=== PATIENT | female | born 1985 | race Caucasian/White ===

== ENCOUNTER 2016-07-16 15:33 | Emergency (ER) | payer OTHER ==
[2016-07-16 15:48] VITALS: RESP 18
[2016-07-16] MEDS ORDERED: SODIUM CHLORIDE 0.9% 500 ML IV STA (16:00)
[2016-07-16 16:30] LABS: Basophils % (A) 1 %; CH 32.2; Eosinophils # (A) 0.2 k/uL (0-0.7); Eosinophils % (A) 3 %; HCT 43.9 % (34.0-46.0); HDW 2.74; HGB 14.3 gm/dL (11.4-16.0); Luc # (Auto) 0.14; Luc % (Auto) 2; Lymphocytes # (A) 2.1 k/uL (1.0-4.8); Lymphocytes % (A) 32 %; MCH 30.8 pg (25.0-35.0); MCHC 32.4 g/dL (31.0-37.0); MCV 95.1 fL (80.0-100.0); Mean Platelet Volume 7.6; Monocytes # (A) 0.2 k/uL (0-1.0); Monocytes % (A) 4 %; Neutrophils # (A) 3.8 k/uL (1.3-7.7); Neutrophils % (A) 59 %; RBC 4.62 m/uL (3.80-5.40); RDW 12.8 % (11.5-15.5); WBC 6.5 k/uL (3.8-10.6)
[2016-07-16 16:40] LABS: Appearance,Urine Clear (Clear); Bilirubin,Urine Negative (Negative); Glucose,Urine (UA) 4+ (Negative); Ketones,Urine Negative (Negative); Leukocyte Esterase,Urine Negative (Negative); Nitrite,Urine Negative (Negative); Particle Count 1061; Protein,Urine Negative (Negative); RBC,Urine 1 /hpf (0-5); Specific Gravity,Urine 1.019 (1.001-1.035); Squamous Epithelial Cell,Urine 2 /hpf (0-4); UA Billing (MACRO vs. MICRO) MICRO; Urobilinogen,Urine <2.0 mg/dL (<2.0); WBC,Urine 4 /hpf (0-5)
--- NOTE | 2016-07-16 17:32 | CT ---
EXAMINATION TYPE: CT abdomen pelvis wo con DATE OF EXAM: 07/16/2016 5:00 PM COMPARISON: NONE INDICATION: Generalized pain with nausea DLP: 3378.8 mGycm, Automated exposure control for dose reduction was used. CONTRAST: None Study performed without Oral Contrast TECHNIQUE: Axial images were obtained from above the diaphragm to the pubic rami in the axial plane a t 5 mm thick sections. Reconstructed images are reviewed on the computer in the coronal plane. FINDINGS: Limited CT sections are obtained the lung bases. The lung bases are clear. CT ABDOMEN: Liver: Normal Spleen: Normal Pancreas: Normal Adrenal glands: The adrenal glands are normal. Gallbladder: Gallbladder surgically absent Kidneys: No masses are evident. No hydronephrosis is present. No cysts are present. No renal stone s are identified. Aorta: Vascular calcification is within the aorta. Inferior vena cava: Normal. CT PELVIS: Loops of bowel without oral contrast. Unremarkable. No dilated loops of bowel are evident. No suspici ous diverticulitis is evident. Appendix: Not identified. No suspicious tubular structure inflammatory changes are evident. Urinary bladder: Normal. Genitourinary structures: Uterus and ovaries are unremarkable. Osseous structures: No suspicious lytic or sclerotic lesions. Scoliosis of the lumbar spine is presen t. IMPRESSIONS: 1. No suspicious acute changes.
[2016-07-16 17:54] LABS: ALT 133 U/L (9-52); AST 95 U/L (14-36); Alkaline Phosphatase 88 U/L (38-126); Amylase 40 U/L (30-110); Anion Gap 11 mmol/L; Blood Urea Nitrogen 13 mg/dL (7-17); Calcium 9.2 mg/dL (8.4-10.2); Carbon Dioxide 28 mmol/L (22-30); Chloride 101 mmol/L (98-107); Glucose 299 mg/dL (74-99); Non-African American GFR(MDRD) >60 (>60 ml/min/1.73 sqM); Potassium 4.5 mmol/L (3.5-5.1); Sodium 140 mmol/L (137-145); Total Bilirubin 0.5 mg/dL (0.2-1.3); Total Protein 7.3 g/dL (6.3-8.2)
--- NOTE | 2016-07-16 18:33 | ED ---
Abdominal Pain HPI - General Chief Complaint: Abdominal Pain Stated Complaint: Abdominal Pain x 4 days Time Seen by Provider: 07/16/16 15:49 Source: patient Mode of arrival: ambulatory Limitations: no limitations - History of Present Illness Initial Comments: This patient is a 30-year-old woman who presents to be evaluated for low abdominal pain that is been going on for 3-4 days now. She indicates all across the lower abdomen. The pain is a cramping or bloating sensation. The pains constant, though it does very little bit in intensity, going to moderate intensity. The patient denies worsening or relieving factors. MD Complaint: abdominal pain Onset/Timin -: days(s) Location: LUQ, RUQ, suprapubic Radiation: none Migration to: no migration Severity: moderate Quality: cramping, fullness Consistency: constant Improves With: nothing Worsens With: nothing Associated Symptoms: denies other symptoms - Related Data Home Medications Medication Instructions Recorded Confirmed Ibuprofen [Motrin] 200 mg PO Q6HR PRN 07/16/16 07/16/16 Previous Rx's Medication Instructions Recorded Famotidine [Pepcid] 20 mg PO BID #14 tablet 07/16/16 Allergies Allergy/AdvReac Type Severity Reaction Status Date / Time No Known Allergies Allergy Verified 07/16/16 16:11 Review of Systems ROS Statement: Those systems with pertinent positive or pertinent negative responses have been documented in the HPI. ROS Other: All systems not noted in ROS Statement are negative. Constitutional: Denies: fever, chills Respiratory: Denies: cough, dyspnea, wheezes Cardiovascular: Denies: chest pain, palpitations Gastrointestinal: Reports: abdominal pain. Denies: nausea, vomiting, diarrhea, constipation, melena, hematochezia Genitourinary: Denies: dysuria, frequency, hematuria, discharge, abnormal menses Musculoskeletal: Denies: back pain Skin: Denies: rash Neurological: Denies: headache Past Medical History Past Medical History: Diabetes Mellitus Additional Past Medical History / Comment(s): Vit D History of Any Multi-Drug Resistant Organisms: None Reported Past Surgical History: Section, Cholecystectomy Past Psychological History: No Psychological Hx Reported Smoking Status: Former smoker Past Alcohol Use History: None Reported Past Drug Use History: None Reported General Exam Limitations: no limitations General appearance: alert, in no apparent distress Head exam: Present: atraumatic, normocephalic Eye exam: Present: normal appearance. Absent: scleral icterus, conjunctival injection Respiratory exam: Present: normal lung sounds bilaterally. Absent: respiratory distress, wheezes, rales, rhonchi, stridor Cardiovascular Exam: Present: regular rate, normal rhythm, normal heart sounds. Absent: systolic murmur, diastolic murmur, rubs, gallop GI/Abdominal exam: Present: soft, tenderness (There is mild suprapubic tenderness without rebound or guarding), normal bowel sounds. Absent: distended , guarding, rebound, rigid, mass, bruit, pulsatile mass, hernia Extremities exam: Present: normal inspection, normal capillary refill. Absent: pedal edema, calf tenderness Back exam: Present: normal inspection. Absent: CVA tenderness (R), CVA tenderness (L) Skin exam: Present: warm, dry, intact, normal color. Absent: rash Course Vital Signs 07/16/16 07/16/16 15:42 18:43 Temperature 98.5 F 98.8 F Pulse Rate 80 81 Respiratory 18 18 Rate Blood Pressure 140/66 139/90 O2 Sat by Pulse 97 96 Oximetry Medical Decision Making - Lab Data Result diagrams: 07/16/16 16:15 07/16/16 17:34 Lab Results 07/16/16 07/16/16 07/16/16 Range/Units 16:15 16:15 16:15 WBC 6.5 (3.8-10.6) k/uL RBC 4.62 (3.80-5.40) m/uL Hgb 14.3 (11.4-16.0) gm/dL Hct 43.9 (34.0-46.0) % MCV 95.1 (80.0-100.0) fL MCH 30.8 (25.0-35.0) pg MCHC 32.4 (31.0-37.0) g/dL RDW 12.8 (11.5-15.5) % Plt Count 230 (150-450) k/uL Neutrophils % 59 % Lymphocytes % 32 % Monocytes % 4 % Eosinophils % 3 % Basophils % 1 % Neutrophils # 3.8 (1.3-7.7) k/uL Lymphocytes # 2.1 (1.0-4.8) k/uL Monocytes # 0.2 (0-1.0) k/uL Eosinophils # 0.2 (0-0.7) k/uL Basophils # 0.0 (0-0.2) k/uL Sodium (137-145) mmol/L Potassium (3.5-5.1) mmol/L Chloride (98-107) mmol/L Carbon Dioxide (22-30) mmol/L Anion Gap mmol/L BUN (7-17) mg/dL Creatinine (0.52-1.04) mg/dL Est GFR (MDRD) Af Amer (>60 ml/min/1.73 sqM) Est GFR (MDRD) Non-Af (>60 ml/min/1.73 sqM) Glucose (74-99) mg/dL Calcium (8.4-10.2) mg/dL Total Bilirubin (0.2-1.3) mg/dL AST (14-36) U/L ALT (9-52) U/L Alkaline Phosphatase (38-126) U/L Total Protein (6.3-8.2) g/dL Albumin (3.5-5.0) g/dL Amylase (30-110) U/L Lipase (23-300) U/L Urine Color Light Yellow Urine Appearance Clear (Clear) Urine pH 6.0 (5.0-8.0) Ur Specific [place] 1.019 (1.001-1.035) Urine Protein Negative (Negative) Urine Glucose (UA) 4+ H (Negative) Urine Ketones Negative (Negative) Urine Blood Small H (Negative) Urine Nitrate Negative (Negative) Urine Bilirubin Negative (Negative) Urine Urobilinogen <2.0 (<2.0) mg/dL Ur Leukocyte Esterase Negative (Negative) Urine RBC 1 (0-5) /hpf Urine WBC 4 (0-5) /hpf Ur Squamous Epith Cells 2 (0-4) /hpf Urine HCG, Qual Not Detected (Not Detectd) 07/16/16 Range/Units 17:34 WBC (3.8-10.6) k/uL RBC (3.80-5.40) m/uL Hgb (11.4-16.0) gm/dL Hct (34.0-46.0) % MCV (80.0-100.0) fL MCH (25.0-35.0) pg MCHC (31.0-37.0) g/dL RDW (11.5-15.5) % Plt Count (150-450) k/uL Neutrophils % % Lymphocytes % % Monocytes % % Eosinophils % % Basophils % % Neutrophils # (1.3-7.7) k/uL Lymphocytes # (1.0-4.8) k/uL Monocytes # (0-1.0) k/uL Eosinophils # (0-0.7) k/uL Basophils # (0-0.2) k/uL Sodium 140 (137-145) mmol/L Potassium 4.5 (3.5-5.1) mmol/L Chloride 101 (98-107) mmol/L Carbon Dioxide 28 (22-30) mmol/L Anion Gap 11 mmol/L BUN 13 (7-17) mg/dL Creatinine 0.59 (0.52-1.04) mg/dL Est GFR (MDRD) Af Amer >60 (>60 ml/min/1.73 sqM) Est GFR (MDRD) Non-Af >60 (>60 ml/min/1.73 sqM) Glucose 299 H (74-99) mg/dL Calcium 9.2 (8.4-10.2) mg/dL Total Bilirubin 0.5 (0.2-1.3) mg/dL AST 95 H (14-36) U/L ALT 133 H (9-52) U/L Alkaline Phosphatase 88 (38-126) U/L Total Protein 7.3 (6.3-8.2) g/dL Albumin 3.8 (3.5-5.0) g/dL Amylase 40 (30-110) U/L Lipase 79 (23-300) U/L Urine Color Urine Appearance (Clear) Urine pH (5.0-8.0) Ur Specific [place] (1.001-1.035) Urine Protein (Negative) Urine Glucose (UA) (Negative) Urine Ketones (Negative) Urine Blood (Negative) Urine Nitrate (Negative) Urine Bilirubin (Negative) Urine Urobilinogen (<2.0) mg/dL Ur Leukocyte Esterase (Negative) Urine RBC (0-5) /hpf Urine WBC (0-5) /hpf Ur Squamous Epith Cells (0-4) /hpf Urine HCG, Qual (Not Detectd) Disposition Clinical Impression: Abdominal pain Disposition: HOME SELF-CARE Condition: Good Instructions: Abdominal Pain (ED) Prescriptions: Famotidine [Pepcid] 20 mg PO BID #14 tablet Referrals: Edward Rothman MD [Primary Care Provider] - 1-2 days
[2016-07-16 18:43] VITALS: BP 139/90; PULSE 81; TEMP 98.8
== END 2016-07-16 18:43 | disposition home or self-care (01) ==
LOC: EC 15:33
DX: R10.9 Unspecified abdominal pain (principal); Z87.891 Personal history of nicotine dependence; Z90.49 Acquired absence of other specified parts of digestive tract; Z98.890 Other specified postprocedural states
CPT/HCPCS: 36415; 74176; 80053; 81001; 81025; 82150; 83690; 85025; 99284

== ENCOUNTER 2019-01-28 19:02 | Emergency (ER) | payer OTHER ==
[2019-01-28 19:39] VITALS: BP 138/88; PULSE 75; RESP 18; TEMP 98.3
[2019-01-28] MEDS ORDERED: SODIUM CHLORIDE 0.9% 1,000 ML IV STA ×2 (20:23)
--- NOTE | 2019-01-28 20:34 | ED ---
Female Urogenital HPI - General Chief complaint: Vaginal Bleeding Stated complaint: Bleeding Time Seen by Provider: 01/28/19 20:23 Source: patient, family, RN notes reviewed, old records reviewed Mode of arrival: ambulatory Limitations: no limitations - History of Present Illness Initial comments: This is a 33-year-old female the ER for evaluation. Today she presents today for evaluation regards to vaginal bleeding some suprapubic cramping and pain, lower back pain. No trauma. No fevers. She states she has been passing some blood and blood clots unsure if she is on her period never had abnormal periods in the past. She is a denying possibility of currently. Denying any fevers. She was lightheaded and dizzy earlier in the day function may pass out when she got up and move. Currently feeling improved as far as I cause. Does not feel near-syncopal currently no chest pain or shortness of breath, no significant abdominal pain she has had suprapubic cramping again. MD Complaint: vaginal bleeding -: hour(s) Location: suprapubic Radiation: non-radiating Severity: mild Severity scale (1-10): 3 Quality: cramping Consistency: intermittent Improves with: menstrual period Worsens with: none Patient : No Associated Symptoms: vaginal bleeding, weakness - Related Data Home Medications Medication Instructions Recorded Confirmed No Known Home Medications 01/28/19 01/28/19 Allergies Allergy/AdvReac Type Severity Reaction Status Date / Time No Known Allergies Allergy Verified 01/28/19 20:53 Review of Systems ROS Statement: Those systems with pertinent positive or pertinent negative responses have been documented in the HPI. ROS Other: All systems not noted in ROS Statement are negative. Past Medical History Past Medical History: Diabetes Mellitus Additional Past Medical History / Comment(s): Vit D History of Any Multi-Drug Resistant Organisms: None Reported Past Surgical History: Section, Cholecystectomy Past Psychological History: No Psychological Hx Reported Smoking Status: Former smoker Past Alcohol Use History: None Reported Past Drug Use History: None Reported General Exam Limitations: no limitations General appearance: alert, in no apparent distress, obese Head exam: Present: atraumatic, normocephalic, normal inspection Eye exam: Present: normal appearance, PERRL, EOMI. Absent: scleral icterus, conjunctival injection, periorbital swelling ENT exam: Present: normal exam, mucous membranes moist Neck exam: Present: normal inspection. Absent: tenderness, meningismus, lymphadenopathy Respiratory exam: Present: normal lung sounds bilaterally. Absent: respiratory distress, wheezes, rales, rhonchi, stridor Cardiovascular Exam: Present: regular rate, normal rhythm, normal heart sounds. Absent: systolic murmur, diastolic murmur, rubs, gallop, clicks GI/Abdominal exam: Present: soft, normal bowel sounds. Absent: distended, tenderness, guarding, rebound, rigid Extremities exam: Present: normal inspection, full ROM, normal capillary refill. Absent: tenderness, pedal edema, joint swelling, calf tenderness Back exam: Present: normal inspection Neurological exam: Present: alert, oriented X3, CN II-XII intact Psychiatric exam: Present: normal affect, normal mood Skin exam: Present: warm, dry, intact, normal color. Absent: rash Course Vital Signs 01/28/19 19:36 Temperature 98.3 F Pulse Rate 75 Respiratory 18 Rate Blood Pressure 138/88 O2 Sat by Pulse 99 Oximetry - Reevaluation(s) Reevaluation #1: 01/28/19 20:34 Medical records reviewed Reevaluation #2: 01/28/19 21:56 No active bleeding here in the ER Medical Decision Making - Medical Decision Making 33 female with dysfunctional uterine bleeding. Vital signs are normal hemoglobin is normal. Patient can be discharged home - Lab Data Result diagrams: 01/28/19 20:36 01/28/19 20:36 Lab Results 01/28/19 01/28/19 01/28/19 Range/Units 20:36 20:36 20:36 WBC (3.8-10.6) k/uL RBC (3.80-5.40) m/uL Hgb (11.4-16.0) gm/dL Hct (34.0-46.0) % MCV (80.0-100.0) fL MCH (25.0-35.0) pg MCHC (31.0-37.0) g/dL RDW (11.5-15.5) % Plt Count (150-450) k/uL Neutrophils % % Lymphocytes % % Monocytes % % Eosinophils % % Basophils % % Neutrophils # (1.3-7.7) k/uL Lymphocytes # (1.0-4.8) k/uL Monocytes # (0-1.0) k/uL Eosinophils # (0-0.7) k/uL Basophils # (0-0.2) k/uL Sodium (137-145) mmol/L Potassium (3.5-5.1) mmol/L Chloride (98-107) mmol/L Carbon Dioxide (22-30) mmol/L Anion Gap mmol/L BUN (7-17) mg/dL Creatinine (0.52-1.04) mg/dL Est GFR (CKD-EPI)AfAm (>60 ml/min/1.73 sqM) Est GFR (CKD-EPI)NonAf (>60 ml/min/1.73 sqM) Glucose (74-99) mg/dL Calcium (8.4-10.2) mg/dL Phosphorus (2.5-4.5) mg/dL Magnesium (1.6-2.3) mg/dL Total Bilirubin (0.2-1.3) mg/dL AST (14-36) U/L ALT (9-52) U/L Alkaline Phosphatase (38-126) U/L Total Protein (6.3-8.2) g/dL Albumin (3.5-5.0) g/dL Urine Color Yellow Urine Appearance Clear (Clear) Urine pH 5.5 (5.0-8.0) Ur Specific [place] 1.032 (1.001-1.035) Urine Protein Negative (Negative) Urine Glucose (UA) 4+ H (Negative) Urine Ketones Negative (Negative) Urine Blood Large H (Negative) Urine Nitrite Negative (Negative) Urine Bilirubin Negative (Negative) Urine Urobilinogen <2.0 (<2.0) mg/dL Ur Leukocyte Esterase Negative (Negative) Urine RBC >182 H (0-5) /hpf Urine WBC 1 (0-5) /hpf Ur Squamous Epith Cells <1 (0-4) /hpf Urine Mucus Rare H (None) /hpf Urine HCG, Qual Not Detected (Not Detectd) Blood Type O Positive Blood Type Recheck O Pos Bld Type Recheck Status No Antibody Screen NEGATIVE Spec Expiration Date 01/31/2019 - 233501/28/19 01/28/19 Range/Units 20:36 20:36 WBC 7.6 (3.8-10.6) k/uL RBC 4.43 (3.80-5.40) m/uL Hgb 14.0 (11.4-16.0) gm/dL Hct 41.3 (34.0-46.0) % MCV 93.2 (80.0-100.0) fL MCH 31.6 (25.0-35.0) pg MCHC 33.9 (31.0-37.0) g/dL RDW 14.5 (11.5-15.5) % Plt Count 246 (150-450) k/uL Neutrophils % 57 % Lymphocytes % 35 % Monocytes % 4 % Eosinophils % 2 % Basophils % 1 % Neutrophils # 4.3 (1.3-7.7) k/uL Lymphocytes # 2.7 (1.0-4.8) k/uL Monocytes # 0.3 (0-1.0) k/uL Eosinophils # 0.2 (0-0.7) k/uL Basophils # 0.1 (0-0.2) k/uL Sodium 137 (137-145) mmol/L Potassium 4.6 (3.5-5.1) mmol/L Chloride 99 (98-107) mmol/L Carbon Dioxide 30 (22-30) mmol/L Anion Gap 8 mmol/L BUN 8 (7-17) mg/dL Creatinine 0.43 L (0.52-1.04) mg/dL Est GFR (CKD-EPI)AfAm >90 (>60 ml/min/1.73 sqM) Est GFR (CKD-EPI)NonAf >90 (>60 ml/min/1.73 sqM) Glucose 330 H (74-99) mg/dL Calcium 9.4 (8.4-10.2) mg/dL Phosphorus 4.1 (2.5-4.5) mg/dL Magnesium 1.6 (1.6-2.3) mg/dL Total Bilirubin 0.5 (0.2-1.3) mg/dL AST 49 H (14-36) U/L ALT 60 H (9-52) U/L Alkaline Phosphatase 88 (38-126) U/L Total Protein 7.1 (6.3-8.2) g/dL Albumin 3.9 (3.5-5.0) g/dL Urine Color Urine Appearance (Clear) Urine pH (5.0-8.0) Ur Specific [place] (1.001-1.035) Urine Protein (Negative) Urine Glucose (UA) (Negative) Urine Ketones (Negative) Urine Blood (Negative) Urine Nitrite (Negative) Urine Bilirubin (Negative) Urine Urobilinogen (<2.0) mg/dL Ur Leukocyte Esterase (Negative) Urine RBC (0-5) /hpf Urine WBC (0-5) /hpf Ur Squamous Epith Cells (0-4) /hpf Urine Mucus (None) /hpf Urine HCG, Qual (Not Detectd) Blood Type Blood Type Recheck Bld Type Recheck Status Antibody Screen Spec Expiration Date - Radiology Data Radiology results: report reviewed (Ultrasound pelvis negative for acute disease), image reviewed Disposition Clinical Impression: Dysfunctional uterine bleeding Disposition: HOME SELF-CARE Condition: Good Instructions (If sedation given, give patient instructions): Dysfunctional Uterine Bleeding (ED) Is patient prescribed a controlled substance at d/c from ED?: No Referrals: None,Stated [Primary Care Provider] - 1-2 days
[2019-01-28 21:04] LABS: Basophils # (A) 0.1 k/uL (0-0.2); Basophils % (A) 1 %; Eosinophils # (A) 0.2 k/uL (0-0.7); Eosinophils % (A) 2 %; HCT 41.3 % (34.0-46.0); Lymphocytes # (A) 2.7 k/uL (1.0-4.8); Lymphocytes % (A) 35 %; MCH 31.6 pg (25.0-35.0); MCHC 33.9 g/dL (31.0-37.0); MCV 93.2 fL (80.0-100.0); Mean Platelet Volume 7.8; Monocytes # (A) 0.3 k/uL (0-1.0); Monocytes % (A) 4 %; Neutrophils # (A) 4.3 k/uL (1.3-7.7); Neutrophils % (A) 57 %; Platelet Count 246 k/uL (150-450); RBC 4.43 m/uL (3.80-5.40); RDW 14.5 % (11.5-15.5); WBC 7.6 k/uL (3.8-10.6)
[2019-01-28 21:16] LABS: ALT 60 U/L (9-52); AST 49 U/L (14-36); African American GFR (CKD) >90 (>60 ml/min/1.73 sqM); Albumin 3.9 g/dL (3.5-5.0); Alkaline Phosphatase 88 U/L (38-126); Anion Gap 8 mmol/L; Blood Urea Nitrogen 8 mg/dL (7-17); Calcium 9.4 mg/dL (8.4-10.2); Carbon Dioxide 30 mmol/L (22-30); Chloride 99 mmol/L (98-107); Glucose 330 mg/dL (74-99); Magnesium 1.6 mg/dL (1.6-2.3); Phosphorus 4.1 mg/dL (2.5-4.5); Potassium 4.6 mmol/L (3.5-5.1); Sodium 137 mmol/L (137-145); Total Bilirubin 0.5 mg/dL (0.2-1.3); Total Protein 7.1 g/dL (6.3-8.2)
[2019-01-28 21:21] LABS: Appearance,Urine Clear (Clear); Bilirubin,Urine Negative (Negative); Blood,Urine Large (Negative); Color,Urine Yellow; Glucose,Urine (UA) 4+ (Negative); Ketones,Urine Negative (Negative); Leukocyte Esterase,Urine Negative (Negative); Mucus,Urine Rare /hpf; Nitrite,Urine Negative (Negative); PH, Urine 5.5 (5.0-8.0); Protein,Urine Negative (Negative); RBC,Urine >182 /hpf (0-5); Specific Gravity,Urine 1.032 (1.001-1.035); Squamous Epithelial Cell,Urine <1 /hpf (0-4); Urobilinogen,Urine <2.0 mg/dL (<2.0)
--- NOTE | 2019-01-28 21:29 | US ---
EXAMINATION TYPE: US transvaginal DATE OF EXAM: 01/28/2019 COMPARISON: CT CLINICAL HISTORY: pain. Pelvic pain and vaginal bleeding x 4 days. Pt says she is passing clots. Hx C -Section. LMP unknown. . TECHNIQUE: Transvaginal (TV). Date of LMP: Unknown EXAM MEASUREMENTS: Uterus: 9.9 x 5.9 x 4.6 cm Endometrial Stripe: 0.71 cm Right Ovary: not seen Left Ovary: not seen limited study due to large body habitus. 1. Uterus: Anteverted appears wnl 2. Endometrium: appears wnl 3. Right Ovary: not seen 4. Left Ovary: not seen 5. Bilateral Adnexa: appear wnl 6. Posterior cul-de-sac: appears wnl IMPRESSION: Normal uterus and endometrium. No evidence of a gestational sac. No adnexal mass. Ovaries not seen.
== END 2019-01-28 22:25 | disposition home or self-care (01) ==
LOC: EC 19:02
DX: N93.8 Other specified abnormal uterine and vaginal bleeding (principal); R10.30 Lower abdominal pain, unspecified; M54.5 Low back pain; R53.1 Weakness; Z87.891 Personal history of nicotine dependence; Z90.49 Acquired absence of other specified parts of digestive tract
CPT/HCPCS: 36415; 76830; 80053; 81001; 81025; 83735; 84100; 85025; 86850; 86900; 86901; 96360; 96361; 99284

== ENCOUNTER → 2019-06-27 | Outpatient (CLI) | payer OTHER ==
[2019-06-27 15:09] VITALS: BP 143/71; PULSE 103; TEMP 97.2; BMI 58.8
--- NOTE | 2019-06-27 16:36 | P.HPBAR ---
Bariatric H&P - History & Physicial H&P Date: 06/27/19 History & Physicial: Visit/CC: initial clinic visit Patient initial contact: Initial weight: Initial weight in pounds: Height: 5 ft 7.75 in Initial BMI: Last weight: Current weight: 174.179 kg Current weight in pounds: 384.00 Current BMI: 58.8 [place] body weight (based on NIH guidelines): 62.936 kg Excess body weight loss: The patient is a 33 year-old F who presents for Bariatric Assessment. Patient presents today with her stepmother. Here for assessment of candidacy for bariatric surgery. Patient has a BMI of 58. She went to a recent bariatric seminar. She is interested in sleeve gastrectomy. She's tried a variety of diets and weight loss methods over the years without success. Suffers from GERD, type 2 diabetes, chronic diarrhea. Denies dysphagia or DVT. Describes rash beneath her large pannus. Heartburn is daily. She does not take gerd medications is currently. Only abdominal surgeries are lap apple and . No known hernias. Review of Systems The patient denies any acute changes in vision or hearing, no dysphagia or odynophagia, no chest pain or shortness of breath, no dysuria or hematuria, no headache, no runny nose, no rectal bleeding or melena, no unexplained weight loss Past Medical History Past Medical History: Diabetes Mellitus, Hypertension Additional Past Medical History / Comment(s): Vit D History of Any Multi-Drug Resistant Organisms: None Reported Past Surgical History: Section, Cholecystectomy Past Anesthesia/Blood Transfusion Reactions: No Reported Reaction Past Psychological History: No Psychological Hx Reported Smoking Status: Current every day smoker Past Alcohol Use History: None Reported Additional Past Alcohol Use History / Comment(s): 1 pack every three days Past Drug Use History: None Reported Surgical - Exam Vital Signs Temp Pulse BP 97.2 F L 103 H 143/71 06/27/19 15:04 06/27/19 15:04 06/27/19 15:04 Physical exam: General: Well-developed, well-nourished HEENT: Normocephalic, sclerae nonicteric Abdomen: Nontender, nondistended, large pannus with some irritation beneath folds Extremities: No edema Neuro: Alert and oriented Bariatric Assessment & Plan (1) Morbid obesity with BMI of 50.0-59.9, adult Narrative/Plan: 60-year-old female with morbid obesity. Options from a surgical point of view discussed in detail. Both gastric bypass and sleeve gastrectomy risks and benefits discussed thoroughly. Patient does have chronic reflux. Some increased risk of worsening reflux with sleeve gastrectomy versus bypass. Patient will consider further. The patient does require 6 months otherwise weight loss with her primary care physician. She is starting that now. We'll tentatively plan follow-up in 4 months for EGD. Status: Acute Bariatric Checklist Checklist: Plan: Checklist: EGD: 1. Hiatal hernia: 2. H. Pylori: HgbA1c: Vitamin D: Smoking: Current every day smoker Primary care physician referral: Psychiatry clearance: Cardiology clearance: Sleep study: Diet journal: VTE risk score: VTE risk level: Rehab needs at discharge:
[2019-06-27 16:51] LABS: HCT 42.8 % (34.0-46.0); HGB 14.3 gm/dL (11.4-16.0); MCH 31.6 pg (25.0-35.0); MCHC 33.3 g/dL (31.0-37.0); MCV 94.9 fL (80.0-100.0); Mean Platelet Volume 8.6; Platelet Count 265 k/uL (150-450); RBC 4.51 m/uL (3.80-5.40); RDW 12.6 % (11.5-15.5)
[2019-06-28 02:17] LABS: African American GFR (CKD) 140.8 (60.0-200.0); Albumin/Globulin Ratio 1.82 (1.60-3.17); Anion Gap 9.3 mmol/L (4.00-12.00); Carbon Dioxide 28.7 mmol/L (21.6-31.8); Globulin 2.2 g/dL (1.6-3.3); Non-African American GFR(CKD) 121.5 (60.0-200.0); Potassium 4.1 mmol/L (3.5-5.5); Total Bilirubin 0.3 mg/dL (0.3-1.2); Total Protein 6.2 g/dL (6.2-8.2)
[2019-06-28 02:26] LABS: Folate, Serum 6.6 ng/mL
[2019-06-28 04:18] LABS: Hemoglobin A1C 10.6 % (4.0-6.0)
== END | disposition home or self-care (01) ==
LOC: BARWHC3 14:31
PROVIDERS: ATTEND Surgery
DX: E66.01 Morbid (severe) obesity due to excess calories (principal); Z68.43 Body mass index [BMI] 50.0-59.9, adult; F17.210 Nicotine dependence, cigarettes, uncomplicated; E55.9 Vitamin D deficiency, unspecified; K90.89 Other intestinal malabsorption; Z90.49 Acquired absence of other specified parts of digestive tract
CPT/HCPCS: 84425; 80053; 82607; 82746; 83540; 85027; 82306; 83036; 93005; G0463; 99201

== ENCOUNTER 2019-11-05 07:18 | Day surgery (SDC) | payer OTHER ==
[2019-11-01 14:55] VITALS: BMI 57.9
[~2019-11-05 07:18] MED LIST: LACTATED RINGERS 1,000 ML IV SCH
[2019-11-05 07:46] VITALS: TEMP 97.1
[2019-11-05 08:06] LABS: Glucose,Whole Blood 107 mg/dL (75-99)
[2019-11-05] MEDS ORDERED: fentaNYL (PF) 50 MCG/ML 2 ML AMP ONE (08:34)
[2019-11-05] MEDS ORDERED: PROPOFOL 10 MG/ML 20 ML VIAL IV ONE (08:34)
[2019-11-05] MEDS ORDERED: MIDAZOLAM 2 MG/2 ML VIAL ONE (08:34)
[2019-11-05] MEDS ORDERED: LIDOCAINE 1% INJ 10MG/ML (20 ML MDV) ONE (08:34)
--- NOTE | 2019-11-05 08:42 | P.GSHP ---
History of Present Illness H&P Date: 11/05/19 Chief Complaint: GERD 33-year-old female here today to be evaluated for possible upcoming bariatric surgery. Patient with history of reflux and some dysphagia she admits to now. Mostly to solids. No abdominal pain. Past Medical History Past Medical History: Diabetes Mellitus, GERD/Reflux, Osteoarthritis (OA) Additional Past Medical History / Comment(s): PAST MIGRAINES, DIARRHEA SINCE GALL BLADDER REMOVED., ARTHRITIS IN BACK, SKIN IRRITATION IN FOLDS OF SKIN, STATES BENAZEPRIL & ATORVASTATIN ARE PREVENTATIVE DUE TO DIABETES. History of Any Multi-Drug Resistant Organisms: MRSA Date of last positivie culture/infection: 2013? MDRO Source:: ANKLE Past Surgical History: Section, Cholecystectomy Additional Past Surgical History / Comment(s): EGD Past Anesthesia/Blood Transfusion Reactions: Previous Problems w/ Anesthesia Additional Past Anesthesia/Blood Transfusion Reaction / Comment(s): VOMITED BLOOD AFTER EGD. Past Psychological History: Anxiety, Depression Smoking Status: Current every day smoker Past Alcohol Use History: None Reported Additional Past Alcohol Use History / Comment(s): TRYING TO QUIT, CURRENTLY SMOKES 3-4 CIGARETTES/DAY, HX OF 1PPD, STARTED SMOKING AGE 10. Past Drug Use History: None Reported Medications and Allergies Home Medications Medication Instructions Recorded Confirmed Type Ergocalciferol [Vitamin D2 50,000 unit PO WEEKLY 06/27/19 11/05/19 History (DRISDOL)] metFORMIN HCL 1,000 mg PO DAILY 06/27/19 11/05/19 History Atorvastatin (Unknown Dose) 1 tab PO DAILY 11/01/19 11/05/19 History Benazepril [Lotensin] 5 mg PO DAILY 11/01/19 11/05/19 History Pioglitazone [Actos] 45 mg PO DAILY 11/01/19 11/05/19 History glipiZIDE [Glucotrol] 5 mg PO DAILY 11/01/19 11/05/19 History Allergies Allergy/AdvReac Type Severity Reaction Status Date / Time No Known Allergies Allergy Verified 11/05/19 07:44 Surgical - Exam Vital Signs Temp Pulse Resp BP Pulse Ox 97.1 F L 98 16 123/76 99 11/05/19 07:45 11/05/19 07:45 11/05/19 07:45 11/05/19 07:45 11/05/19 07:45 Physical exam: General: Well-developed, well-nourished HEENT: Normocephalic, sclerae nonicteric Abdomen: Nontender, nondistended Extremities: No edema Neuro: Alert and oriented Results - Labs Abnormal Lab Results - Last 24 Hours (Table) 11/05/19 Range/Units 08:02 POC Glucose (mg/dL) 107 H (75-99) mg/dL Assessment and Plan (1) GERD (gastroesophageal reflux disease) Narrative/Plan: Will proceed with upper endoscopy at this time Current Visit: Yes Status: Acute Code(s): K21.9 - GASTRO-ESOPHAGEAL REFLUX DISEASE WITHOUT ESOPHAGITIS SNOMED Code(s): 715651761
[2019-11-05] MEDS ORDERED: IV FLUID CONTINUATION 1,000 ML IV ONE (08:47)
--- NOTE | 2019-11-05 08:49 | P.PCN ---
Date of Procedure: 11/05/19 Procedure(s) Performed: Preoperative Dx: GERD, dysphagia, presurgical Postoperative Dx: Mild gastritis, retained food possible gastroparesis Procedure: EGD with Bx Anesthesia: Sedation Endoscopist: Dr. Samano Specimens: Antrum Endoscopic Procedure: The patient was on the endoscopy table in the left decubitus position. The Olympus gastroscope was inserted into the oropharynx and passed under direct visualization to the region of the third portion of the duodenum. From that point the scope was slowly withdrawn inspecting all surfaces carefully. There were no neoplastic inflammatory or polypoid lesions throughout the duodenum. The pylorus was widely patent. The stomach was carefully inspected. There was and a large amount of retained food within the stomach. No obstruction was seen. Mild gastritis in the antrum was noted. A biopsy of the antrum took place to rule out H. pylori. Retroflexion revealed a normal hiatus. The esophagus was then carefully examined. There were no neoplastic inflammatory or polypoid lesions throughout the visualized esophagus. The patient was then taken to the recovery room in stable condition per anesthesia guidelines. Recommendations: Will order a gastric emptying study. Await biopsy results.
[2019-11-05 09:10] VITALS: BP 111/76; PULSE 67; RESP 18
== END 2019-11-05 09:24 | disposition home or self-care (01) ==
LOC: ORWHC2ENDO 07:18
PROVIDERS: ATTEND Surgery
DX: K29.50 Unspecified chronic gastritis without bleeding (principal); K21.9 Gastro-esophageal reflux disease without esophagitis; I10 Essential (primary) hypertension; E78.5 Hyperlipidemia, unspecified; F17.210 Nicotine dependence, cigarettes, uncomplicated; E11.9 Type 2 diabetes mellitus without complications; M19.90 Unspecified osteoarthritis, unspecified site; F41.9 Anxiety disorder, unspecified; F32.9 Major depressive disorder, single episode, unspecified; Z86.14 Personal history of Methicillin resistant Staphylococcus aureus infection; Z79.84 Long term (current) use of oral hypoglycemic drugs; Z79.899 Other long term (current) drug therapy; Z90.49 Acquired absence of other specified parts of digestive tract
CPT/HCPCS: 81025; 88305; 43239; J2250; J2001; J3010; J2704

== ENCOUNTER 2019-12-09 19:33 | Emergency (ER) | payer OTHER ==
[2019-12-09 19:39] VITALS: RESP 18
[2019-12-09] MEDS ORDERED: FAMOTIDINE 20 MG/2 ML VIAL IV STA (19:47)
[2019-12-09] MEDS ORDERED: SODIUM CHLORIDE 0.9% 1,000 ML IV STA (19:47)
[2019-12-09 20:09] LABS: Basophils % (A) 0 %; Eosinophils # (A) 0.2 k/uL (0-0.7); Eosinophils % (A) 3 %; HCT 39.2 % (34.0-46.0); HGB 13.3 gm/dL (11.4-16.0); Lymphocytes # (A) 2.9 k/uL (1.0-4.8); Lymphocytes % (A) 34 %; MCH 32.6 pg (25.0-35.0); MCHC 33.8 g/dL (31.0-37.0); MCV 96.5 fL (80.0-100.0); Mean Platelet Volume 7.9; Monocytes # (A) 0.3 k/uL (0-1.0); Monocytes % (A) 3 %; Neutrophils # (A) 4.9 k/uL (1.3-7.7); Neutrophils % (A) 58 %; Platelet Count 193 k/uL (150-450); RBC 4.06 m/uL (3.80-5.40); RDW 13.4 % (11.5-15.5); WBC 8.3 k/uL (3.8-10.6)
--- NOTE | 2019-12-09 20:16 | ED ---
Abdominal Pain HPI - General Chief Complaint: Abdominal Pain Stated Complaint: Abd and Chest Pain Time Seen by Provider: 12/09/19 19:41 Source: patient Mode of arrival: ambulatory Limitations: no limitations - History of Present Illness Initial Comments: 33-year-old female patient presents to the emergency department today for evaluation of chest pain and upper abdominal pain. Patient states the pain started a few days ago intermittently and then became more constant over the last 2 days. States that she has been nauseated was having any vomiting. States she does feel short of breath but the pain worsens when she takes a deep breath. She states the pain does radiate through to her back and into her shoulder. Radiates to the right upper quadrant abdomen. States she's been having normal bowel movements. States she is currently being evaluated by her surgeon for gastroparesis after having an abnormal EGD. States that she has not had symptoms from this. She is also currently being evaluated for weight loss surgery. Patient denies any recent rash, fever, chills, cough, numbness, tingling, dizziness, weakness, hematuria, dysuria, urinary urgency, urinary frequency, headache, visual changes, or any other complaints. - Related Data Home Medications Medication Instructions Recorded Confirmed Ergocalciferol [Vitamin D2 50,000 unit PO WEEKLY 06/27/19 11/05/19 (DRISDOL)] metFORMIN HCL 1,000 mg PO DAILY 06/27/19 11/05/19 Atorvastatin (Unknown Dose) 1 tab PO DAILY 11/01/19 11/05/19 Benazepril [Lotensin] 5 mg PO DAILY 11/01/19 11/05/19 Pioglitazone [Actos] 45 mg PO DAILY 11/01/19 11/05/19 glipiZIDE [Glucotrol] 5 mg PO DAILY 11/01/19 11/05/19 Previous Rx's Medication Instructions Recorded Famotidine [Pepcid] 20 mg PO HS #30 tablet 12/09/19 Allergies Allergy/AdvReac Type Severity Reaction Status Date / Time No Known Allergies Allergy Verified 12/09/19 19:39 Review of Systems ROS Statement: Those systems with pertinent positive or pertinent negative responses have been documented in the HPI. ROS Other: All systems not noted in ROS Statement are negative. Past Medical History Past Medical History: Diabetes Mellitus, GERD/Reflux, Osteoarthritis (OA) Additional Past Medical History / Comment(s): PAST MIGRAINES, DIARRHEA SINCE GALL BLADDER REMOVED., ARTHRITIS IN BACK, SKIN IRRITATION IN FOLDS OF SKIN, STATES BENAZEPRIL & ATORVASTATIN ARE PREVENTATIVE DUE TO DIABETES. History of Any Multi-Drug Resistant Organisms: MRSA Date of last positivie culture/infection: 2013? MDRO Source:: ANKLE Past Surgical History: Section, Cholecystectomy Additional Past Surgical History / Comment(s): EGD Past Anesthesia/Blood Transfusion Reactions: Previous Problems w/ Anesthesia Additional Past Anesthesia/Blood Transfusion Reaction / Comment(s): VOMITED BLOOD AFTER EGD. Past Psychological History: Anxiety, Depression Past Alcohol Use History: None Reported Past Drug Use History: None Reported General Exam Limitations: no limitations General appearance: alert, in no apparent distress, other (This is a well- developed, well-nourished adult female patient in no acute distress. Vital signs upon presentation are temperature 98.5F, pulse 92, respirations 18, blood pressure 151/91, pulse ox 98% on room air.) Eye exam: Present: normal appearance, PERRL, EOMI. Absent: scleral icterus, conjunctival injection, periorbital swelling Respiratory exam: Present: normal lung sounds bilaterally. Absent: respiratory distress, wheezes, rales, rhonchi, stridor Cardiovascular Exam: Present: regular rate, normal rhythm, normal heart sounds. Absent: systolic murmur, diastolic murmur, rubs, gallop, clicks GI/Abdominal exam: Present: soft, tenderness (Midepigastric), normal bowel sounds. Absent: distended, guarding, rebound, rigid Neurological exam: Present: alert, oriented X3, CN II-XII intact Psychiatric exam: Present: normal affect, normal mood Skin exam: Present: warm, dry, intact, normal color. Absent: rash Course Vital Signs 12/09/19 19:35 Temperature 98.5 F Pulse Rate 92 Respiratory 18 Rate Blood Pressure 151/91 O2 Sat by Pulse 98 Oximetry Medical Decision Making - Medical Decision Making 33-year-old female patient presents to the emergency department today for evaluation of midepigastric and lower chest pain. Visible examination did reveal midepigastric tenderness. Labs reviewed and are unremarkable. Patient was given IV Pepcid. Upon reevaluation she is not feeling better. We did give a GI cocktail. Upon reevaluation she states her pain is now decreased to a 3 and she can breathe easier. I did discuss this could be related to gastritis or related to her gastroparesis. She will be discharged with prescription for Pepcid. She is instructed to follow-up with her primary care physician for recheck in 1-2 days. Return parameters were discussed in detail. She verbalizes understanding and agrees with this plan. - Lab Data Result diagrams: 12/09/19 19:55 12/09/19 19:55 Lab Results 12/09/19 12/09/19 12/09/19 Range/Units 19:55 19:55 19:55 WBC 8.3 (3.8-10.6) k/uL RBC 4.06 (3.80-5.40) m/uL Hgb 13.3 (11.4-16.0) gm/dL Hct 39.2 (34.0-46.0) % MCV 96.5 (80.0-100.0) fL MCH 32.6 (25.0-35.0) pg MCHC 33.8 (31.0-37.0) g/dL RDW 13.4 (11.5-15.5) % Plt Count 193 (150-450) k/uL Neutrophils % 58 % Lymphocytes % 34 % Monocytes % 3 % Eosinophils % 3 % Basophils % 0 % Neutrophils # 4.9 (1.3-7.7) k/uL Lymphocytes # 2.9 (1.0-4.8) k/uL Monocytes # 0.3 (0-1.0) k/uL Eosinophils # 0.2 (0-0.7) k/uL Basophils # 0.0 (0-0.2) k/uL Sodium 138 (137-145) mmol/L Potassium 3.7 (3.5-5.1) mmol/L Chloride 105 (98-107) mmol/L Carbon Dioxide 26 (22-30) mmol/L Anion Gap 7 mmol/L BUN 13 (7-17) mg/dL Creatinine 0.54 (0.52-1.04) mg/dL Est GFR (CKD-EPI)AfAm >90 (>60 ml/min/1.73 sqM) Est GFR (CKD-EPI)NonAf >90 (>60 ml/min/1.73 sqM) Glucose 129 H (74-99) mg/dL Plasma Lactic Acid Kevin 0.9 (0.7-2.0) mmol/L Calcium 9.1 (8.4-10.2) mg/dL Total Bilirubin 0.7 (0.2-1.3) mg/dL AST 18 (14-36) U/L ALT 20 (4-34) U/L Alkaline Phosphatase 84 (38-126) U/L Troponin I (0.000-0.034) ng/mL Total Protein 7.0 (6.3-8.2) g/dL Albumin 4.1 (3.5-5.0) g/dL Amylase 38 (30-110) U/L Lipase 66 (23-300) U/L Urine Color Urine Appearance (Clear) Urine pH (5.0-8.0) Ur Specific [place] (1.001-1.035) Urine Protein (Negative) Urine Glucose (UA) (Negative) Urine Ketones (Negative) Urine Blood (Negative) Urine Nitrite (Negative) Urine Bilirubin (Negative) Urine Urobilinogen (<2.0) mg/dL Ur Leukocyte Esterase (Negative) Urine RBC (0-5) /hpf Urine WBC (0-5) /hpf Ur Squamous Epith Cells (0-4) /hpf Urine Bacteria (None) /hpf 12/09/19 12/09/19 Range/Units 19:55 20:15 WBC (3.8-10.6) k/uL RBC (3.80-5.40) m/uL Hgb (11.4-16.0) gm/dL Hct (34.0-46.0) % MCV (80.0-100.0) fL MCH (25.0-35.0) pg MCHC (31.0-37.0) g/dL RDW (11.5-15.5) % Plt Count (150-450) k/uL Neutrophils % % Lymphocytes % % Monocytes % % Eosinophils % % Basophils % % Neutrophils # (1.3-7.7) k/uL Lymphocytes # (1.0-4.8) k/uL Monocytes # (0-1.0) k/uL Eosinophils # (0-0.7) k/uL Basophils # (0-0.2) k/uL Sodium (137-145) mmol/L Potassium (3.5-5.1) mmol/L Chloride (98-107) mmol/L Carbon Dioxide (22-30) mmol/L Anion Gap mmol/L BUN (7-17) mg/dL Creatinine (0.52-1.04) mg/dL Est GFR (CKD-EPI)AfAm (>60 ml/min/1.73 sqM) Est GFR (CKD-EPI)NonAf (>60 ml/min/1.73 sqM) Glucose (74-99) mg/dL Plasma Lactic Acid Kevin (0.7-2.0) mmol/L Calcium (8.4-10.2) mg/dL Total Bilirubin (0.2-1.3) mg/dL AST (14-36) U/L ALT (4-34) U/L Alkaline Phosphatase (38-126) U/L Troponin I <0.012 (0.000-0.034) ng/mL Total Protein (6.3-8.2) g/dL Albumin (3.5-5.0) g/dL Amylase (30-110) U/L Lipase (23-300) U/L Urine Color Yellow Urine Appearance Clear (Clear) Urine pH 6.0 (5.0-8.0) Ur Specific [place] 1.015 (1.001-1.035) Urine Protein Negative (Negative) Urine Glucose (UA) Negative (Negative) Urine Ketones Negative (Negative) Urine Blood Trace H (Negative) Urine Nitrite Negative (Negative) Urine Bilirubin Negative (Negative) Urine Urobilinogen 3.0 (<2.0) mg/dL Ur Leukocyte Esterase Small H (Negative) Urine RBC 1 (0-5) /hpf Urine WBC 7 H (0-5) /hpf Ur Squamous Epith Cells 1 (0-4) /hpf Urine Bacteria Rare H (None) /hpf - EKG Data -: EKG Interpreted by Co EKG Comments: EKG obtained at 2011 shows normal sinus rhythm with a ventricular rate of 84, TN interval 148, QRS duration 94, QT 370, QTC 437. No evidence of ST elevation or depression. - Radiology Data Radiology results: report reviewed, image reviewed View x-ray of the chest is obtained. Report was reviewed in its entirety. Impression by Dr. Galdamez shows normal heart. Patchy left lower lobe atelectasis. Disposition Clinical Impression: Abdominal pain, Chest pain Disposition: HOME SELF-CARE Condition: Good Instructions (If sedation given, give patient instructions): Chest Pain (ED), Abdominal Pain (ED) Additional Instructions: Take medications as directed. Follow-up through primary care physician neuros urgeon for further evaluation as soon as possible. Return to the emergency department immediately for any new, worsening, or concerning symptoms. Prescriptions: Famotidine [Pepcid] 20 mg PO HS #30 tablet Is patient prescribed a controlled substance at d/c from ED?: No Referrals: Edward Rothman MD [Primary Care Provider] - 1-2 days Isauro Samano MD [Medical Doctor] - 1-2 days Time of Disposition: 21:45
[2019-12-09 20:24] LABS: ALT 20 U/L (4-34); AST 18 U/L (14-36); African American GFR (CKD) >90 (>60 ml/min/1.73 sqM); Albumin 4.1 g/dL (3.5-5.0); Alkaline Phosphatase 84 U/L (38-126); Amylase 38 U/L (30-110); Anion Gap 7 mmol/L; Blood Urea Nitrogen 13 mg/dL (7-17); Calcium 9.1 mg/dL (8.4-10.2); Carbon Dioxide 26 mmol/L (22-30); Chloride 105 mmol/L (98-107); Glucose 129 mg/dL (74-99); Non-African American GFR(CKD) >90 (>60 ml/min/1.73 sqM); Potassium 3.7 mmol/L (3.5-5.1); Sodium 138 mmol/L (137-145); Total Bilirubin 0.7 mg/dL (0.2-1.3)
[2019-12-09 20:30] LABS: Appearance,Urine Clear (Clear); Bacteria,Urine Rare /hpf; Bilirubin,Urine Negative (Negative); Blood,Urine Trace (Negative); Color,Urine Yellow; Glucose,Urine (UA) Negative (Negative); Ketones,Urine Negative (Negative); Leukocyte Esterase,Urine Small (Negative); Nitrite,Urine Negative (Negative); Protein,Urine Negative (Negative); RBC,Urine 1 /hpf (0-5); Specific Gravity,Urine 1.015 (1.001-1.035); Squamous Epithelial Cell,Urine 1 /hpf (0-4); WBC,Urine 7 /hpf (0-5)
--- NOTE | 2019-12-09 20:32 | XR ---
EXAMINATION TYPE: XR chest 2V DATE OF EXAM: 12/09/2019 COMPARISON: NONE HISTORY: Epigastric pain TECHNIQUE: 2 views FINDINGS: Heart and mediastinum are normal. There is some linear density in the posterior left lower lobe. There are no hilar masses. Costophrenic angles are clear. IMPRESSION: Normal heart. Patchy left lower lobe atelectasis.
[2019-12-09] MEDS ORDERED: MAG HYDROX/AL HYDROX/SIMETH 30 ML, HYOSCYAMINE ELIXIR 10 ML, LIDOCAINE VISCOUS 2% 10 ML PO STA ×3 (21:11)
[2019-12-09 21:57] VITALS: BP 132/80; PULSE 70; TEMP 98.4
== END 2019-12-09 21:58 | disposition home or self-care (01) ==
LOC: EC 19:33
DX: R10.10 Upper abdominal pain, unspecified (principal); R07.9 Chest pain, unspecified; R11.0 Nausea; R10.816 Epigastric abdominal tenderness; E11.9 Type 2 diabetes mellitus without complications; Z79.84 Long term (current) use of oral hypoglycemic drugs; Z79.899 Other long term (current) drug therapy
CPT/HCPCS: 36415; 71046; 80053; 81001; 82150; 83605; 83690; 84484; 85025; 93005; 96361; 96374; 99284

== ENCOUNTER → 2019-12-09 | Outpatient (CLI) | payer OTHER ==
[2019-12-09 11:52] VITALS: BMI 63.9
== END | disposition home or self-care (01) ==
LOC: BARWHC3 08:35
PROVIDERS: ATTEND Surgery
DX: E66.01 Morbid (severe) obesity due to excess calories (principal); Z68.44 Body mass index [BMI] 60.0-69.9, adult; Z71.3 Dietary counseling and surveillance
CPT/HCPCS: 97804

== ENCOUNTER → 2020-01-07 | Outpatient (CLI) | payer OTHER ==
--- NOTE | 2020-01-07 12:47 | NM ---
EXAMINATION TYPE: NM gastric emptying static DATE OF EXAM: 01/07/2020 COMPARISON: NONE HISTORY: Gastroparesis Following administration of 2.14 mCi Tc 99m Sulfur Colloid with 4 oz of eggs, 0.5 piece of toast, 8 o z of water, projection images of the abdomen were obtained 5 minutes post ingestion. Patient Emptying Values 1 Hour 20 % 2 Hours 52 % 3 Hours 89 % 4 Hours 100 % Gastroesophageal reflux: None IMPRESSION: Gastric emptying: Normal Gastroesophageal reflux: None Gastric emptying normal percentage values: 60 minutes: <90% retention (>10% emptying) is normal; less than 30% retention (>70% emptying) suggest s abnormally rapid emptying. 90 minutes: <65% retention (> 35% emptying) is normal. 120 minutes: <60% retention (> 40% emptying) is normal. 180 minutes: <30% retention (> 70% emptying) is normal. Gastric emptying T-1/2: Solid: The normal range is 60-105 minutes Liquid only: Normal range is 10-45 minutes. Liquid only-children: At 60 minutes, normal range is 44-58 % . Liquid only-infants: At 60 minutes, normal range is 32-64 %. Additional references: Gastric Emptying Scintigraphy [email or web address]
== END | disposition home or self-care (01) ==
LOC: RADNMMAIN 06:53
PROVIDERS: ATTEND Surgery
DX: K31.84 Gastroparesis (principal)
CPT/HCPCS: 78264; A9541

== ENCOUNTER → 2020-02-04 | Outpatient (CLI) | payer OTHER ==
[2020-02-04 14:47] VITALS: BP 161/83; PULSE 98; RESP 16; TEMP 98.3; BMI 61.6
--- NOTE | 2020-02-04 17:27 | P.BASOAP ---
Subjective Progress Note Date: 02/04/20 Principal diagnosis: Morbid obesity 34-year-old female returns after recent upper endoscopy. During the endoscopy retained food was seen. She was sent for a gastric emptying study which was read as normal. Patient describes bad reflux. She states she has been doing a lot of thinking and research online regarding the surgical options and she is interested in gastric bypass at this time. Objective - Vital Signs Vital signs: Vital Signs Temp 98.3 F 02/04/20 14:44 Pulse 98 02/04/20 14:44 Resp 16 02/04/20 14:44 BP 161/83 02/04/20 14:44 Pulse Ox Intake & Output 02/03/20 02/04/20 02/04/20 18:59 06:59 18:59 Weight 179.821 kg - Exam Abdomen: Soft, nontender, nondistended Assessment/Plan (1) Morbid obesity with BMI of 50.0-59.9, adult Narrative/Plan: 34-year-old female with morbid obesity. Options again reviewed with the patient in detail. Patient remains interested in gastric bypass which is not unreasonable given the upper endoscopy results and her complaints of chronic reflux. Will make appointment for the patient to be seen by bariatric surgeon performing this procedure's. Plan: Date: 02/04/20 Initial Weight: 174.293 kg Initial BMI: 59.7 Current Weight: 179.821 kg Current BMI: 61.6 Type of Surgery: Total Volume in Band: Previous Volume: Volume Removed: Volume Added: Band Size:
== END | disposition home or self-care (01) ==
LOC: BARWHC3 14:27
PROVIDERS: ATTEND Surgery
DX: E66.01 Morbid (severe) obesity due to excess calories (principal); Z68.43 Body mass index [BMI] 50.0-59.9, adult
CPT/HCPCS: 99211

== ENCOUNTER → 2020-06-10 | Outpatient (CLI) | payer OTHER ==
[2020-06-10 15:35] VITALS: BP 150/97; PULSE 91; RESP 16; TEMP 98.2; BMI 62.9
--- NOTE | 2020-06-10 16:20 | P.PN ---
Subjective Progress Note Date: 06/10/20 DATE OF SERVICE: 06/10/2020 CHIEF COMPLAINT: Morbid obesity HISTORY OF PRESENT ILLNESS: Joann Hendrix is a 34-year-old female who comes with lifelong morbid obesity. As a result of her morbid obesity, she has co- morbidities of diabetes type 2, hypertensive heart disease, panniculitis, hyperlipidemia. She has dysphagia with gastroesophageal reflux disease. Seperately, she reports intermittent lower abdominal pain. She has history of abdominal surgeries including section. She presents for management of her obesity including new dysphagia. She is looking into gastrectomy procedures. At height of 5 feet 7.25 inches, her ideal body weight is 158 pounds. Her highest weight is 409 pounds, BMI 63.7. She comes in 404 pounds from 401 pounds, 3 months ago. She has gained 3 pounds in 3 months. Her body mass index is 63.0. She is 246 pounds overweight. PAST MEDICAL HISTORY: 1. Morbid obesity due to excess calories 2. Body mass index 63.7, initial 3. Diabetes type 2, non-insulin dependent 4. Gastroesophageal reflux disease 5. Hypertensive heart disease 6. Hyperlipidemia 7. Migraines 8. Panniculitis 9. History of MRSA 10. Anxiety 11. Depression PAST SURGICAL HISTORY: 1. section 2. Cholecystectomy HOME MEDICATIONS: Home Medications Medication Instructions Recorded Confirmed Ergocalciferol [Vitamin D2 50,000 unit PO WEEKLY 06/27/19 06/10/20 (DRISDOL)] metFORMIN HCL 1,000 mg PO DAILY 06/27/19 06/10/20 Atorvastatin (Unknown Dose) 1 tab PO DAILY 11/01/19 06/10/20 Benazepril [Lotensin] 2.5 mg PO DAILY 11/01/19 06/10/20 Pioglitazone [Actos] 45 mg PO DAILY 11/01/19 06/10/20 glipiZIDE [Glucotrol] 5 mg PO DAILY 11/01/19 06/10/20 Omeprazole 20 mg PO DAILY 02/19/20 06/10/20 Previous Rx's Medication Instructions Recorded Nystatin 100,000 Unit/gm Powd 1 applic TOPICAL BID #60 powder 02/19/20 [Mycostatin Powder] Loratadine-Pseudoeph 5-120 mg 1 each PO Q12HR #20 tab 06/10/20 [Claritin-D 12 HR] ALLERGIES: Allergies Allergy/AdvReac Type Severity Reaction Status Date / Time No Known Allergies Allergy Verified 06/10/20 15:35 SOCIAL HISTORY: Past tobacco use. FAMILY HISTORY: No family history of Crohn's disease. Father had colitis. Family history of morbid obesity. No lupus in the family. No reports of stomach or esophageal cancer. REVIEW OF ORGAN SYSTEMS: CONSTITUTIONAL: At height of 5 feet 7.25 inches, her ideal body weight is 158 pounds. Her highest weight is 409 pounds, BMI 63.7. She comes in 401 pounds. Her body mass index is 62.5. She is 243 pounds overweight. HEENT: Denies any active troubles with vision or hearing. ENDOCRINE: Has diabetes. No hypothyroidism. CARDIOVASCULAR: Past reports of palpitations or heart attacks or chest pain. Has hypertension. RESPIRATORY: Has daytime somnolence. Has asthma. GASTROINTESTINAL: Denies any bright red blood per rectum. Has diarrhea from gallbladder removal. No constipation. Has gastroesophageal reflux disease. MUSCULOSKELETAL: Has lower back pain and joint pain. Has osteoarthritis of the knees. NEURO: No headaches. Has migraines. PSYCH: Has depression. No suicidal ideation. Has anxiety. RHEUMATOLOGIC: No lupus. No rheumatoid arthritis. HEMATOLOGIC: Denies any abnormal bleeding or bruising. No personal history of DVTs. SKIN: No rash. No skin cancer. Panniculitis PHYSICAL EXAM: VITAL SIGNS: Height 5 foot 7.25 inches, weight 404 pounds. BMI 63.0 Vital Signs Temp 98.2 F 06/10/20 15:32 Pulse 91 06/10/20 15:32 Resp 16 06/10/20 15:32 BP 150/97 06/10/20 15:32 Pulse Ox GENERAL: Well-developed in no acute distress. HEENT: No scleral icterus. Extraocular movements grossly intact. Hears conversational speech. No nasal drainage. NECK: Supple without lymphadenopathy. CHEST: Nonlabored respirations with equal bilateral excursions. CARDIOVASCULAR: Regular rate and regular rhythm. Distal 2+ pulses. ABDOMEN: Obese, soft, nontender, nondistended. MUSCULOSKELETAL: No clubbing, cyanosis. NEURO: No focal or lateralizing signs. Cranial nerves 2 through 12 grossly within normal limits. PSYCH: Appropriate affect. Alert and oriented to person, place and time. SKIN: Good skin turgor. Well perfused. LABS: Total protein is low, vitamin A is low, PTH is elevated. ASSESSMENT: 1. Morbid obesity due to excess calories 2. Body mass index 62.5 3. Diabetes type 2, non-insulin dependent 4. Gastroesophageal reflux disease 5. Hypertensive heart disease 6. Hyperlipidemia 7. Migraines 8. Panniculitis 9. History of MRSA 10. Anxiety 11. Depression 12. Dysphagia PLAN: 1. She has dysphagia. Recommend esophogram 2. Recommend manometry advised for dysphagia 3. Recommend repeat upper endoscopy 4. Recommend diagnostic laparoscopy for lysis of adhesions. She is elevated risk due to her super morbid obesity. 5. Recommend repeat bariatric labs. 6. Claritin prescribed for post-nasal drip. Objective - Vital Signs Vital signs: Vital Signs Temp 98.2 F 06/10/20 15:32 Pulse 91 06/10/20 15:32 Resp 16 06/10/20 15:32 BP 150/97 06/10/20 15:32 Pulse Ox Intake & Output 06/09/20 06/10/20 06/10/20 18:59 06:59 18:59 Weight 183.705 kg - Labs CBC & Chem 7: 06/10/20 16:34 06/10/20 16:34
[2020-06-10 16:49] LABS: HCT 38.8 % (34.0-46.0); HGB 13.4 gm/dL (11.4-16.0); MCH 32.3 pg (25.0-35.0); MCHC 34.6 g/dL (31.0-37.0); MCV 93.2 fL (80.0-100.0); Mean Platelet Volume 7.4; Platelet Count 225 k/uL (150-450); RBC 4.16 m/uL (3.80-5.40); RDW 12.8 % (11.5-15.5); WBC 8.8 k/uL (3.8-10.6)
[2020-06-10 23:01] LABS: INR 0.98 (0.90-1.11); Partial Thromboplastin Time 29.1 sec (23.5-31.0); Prothrombin Time 10.6 sec (9.9-11.9)
[2020-06-11 02:18] LABS: % Iron Saturation 14.86 (12.00-45.00); African American GFR (CKD) 139.8 (60.0-200.0); Albumin 4.5 g/dL (3.80-4.90); Albumin/Globulin Ratio 1.96 (1.60-3.17); BUN/Creat Ratio 11.67 Ratio (12.00-20.00); Calcium 9.4 mg/dL (8.7-10.3); Chol/HDL Ratio 2.81; Globulin 2.3 g/dL (1.6-3.3); LDL Cholesterol,Calculated 57.8 mg/dL (0.0-131.0); Magnesium 1.7 mg/dL (1.5-2.4); Non-African American GFR(CKD) 120.6 (60.0-200.0); Phosphorus 3.1 mg/dL (2.4-5.1); Potassium 4.2 mmol/L (3.5-5.5); Total Bilirubin 0.5 mg/dL (0.3-1.2); Total Protein 6.8 g/dL (6.2-8.2); VLDL Calculation 20.2 mg/dL (5.00-40.00)
[2020-06-11 05:21] LABS: Ferritin 51.4 ng/mL (10.0-291.0)
[2020-06-11 05:42] LABS: Folate, Serum 13.5 ng/mL
[2020-06-11 11:54] LABS: Zinc, Serum 62 ug/dL (60-130)
[2020-06-12 07:01] LABS: Vitamin A 38 ug/dL (38-106)
[2020-06-12 13:18] LABS: Vit B1(Thiamine) 70 ug/L (38-122)
[2020-06-15 11:21] LABS: Selenium 113 mcg/L (63-160)
== END | disposition home or self-care (01) ==
LOC: BARWHC3 15:06
PROVIDERS: ATTEND Surgery Plastic and Reconstructive Surgery
DX: Z86.14 Personal history of Methicillin resistant Staphylococcus aureus infection (principal); E66.01 Morbid (severe) obesity due to excess calories; E11.9 Type 2 diabetes mellitus without complications; E78.5 Hyperlipidemia, unspecified; G43.909 Migraine, unspecified, not intractable, without status migrainosus; R13.10 Dysphagia, unspecified; I11.9 Hypertensive heart disease without heart failure; M79.3 Panniculitis, unspecified; F41.9 Anxiety disorder, unspecified; F32.9 Major depressive disorder, single episode, unspecified; Z90.49 Acquired absence of other specified parts of digestive tract; Z98.890 Other specified postprocedural states; Z68.44 Body mass index [BMI] 60.0-69.9, adult; Z79.899 Other long term (current) drug therapy; K21.9 Gastro-esophageal reflux disease without esophagitis
CPT/HCPCS: 84255; 84134; 84425; 80061; 80053; 82607; 82728; 82525; 82746; 83540; 83550; 83735; 84100; 84443; 84590; 84630; 85027; 85610; 85730; 82306; 83970; 83036; 36415; G0463; 99211

== ENCOUNTER → 2020-06-18 | Outpatient (CLI) | payer OTHER ==
--- NOTE | 2020-06-18 19:41 | CONS ---
CONSULTATION DATE OF SERVICE: 06/18/2020 This 34-year-old lady has been evaluated in the sleep center for possible obstructive sleep apnea-hypopnea syndrome. HISTORY OF PRESENT ILLNESS/SLEEP-WAKE EVALUATION: Patient's usual sleep schedule is from around midnight or 2 a.m. until 4 or 6 a.m. Then she gets up because she needs to take her daughter to school. After that she may take a nap in material control analyst until 8, 9 or 10 a.m. She does have problems with falling asleep. It may take about 30-60 minutes for her to fall asleep and she has a TV set in the bedroom. She sleeps in different positions, with snoring and awakenings from sleep every hour with some movements; usually she does not need to get out of bed. No history of hypnagogic hallucinations, sleep paralysis or cataplexy. In the morning the patient wakes up tired, has difficulties paying attention, falling asleep during the day. She worries about her sleep, has problems with memory, concentration, irritability, depression and anxiety. [place] Sleepiness Scale is in extremely high range at 17. PAST MEDICAL HISTORY: Positive for 2 episodes of pneumonia, headaches, acid reflux, diabetes mellitus, anxiety, depression, bipolar, arthritis. PAST SURGICAL HISTORY: , cholecystectomy. MEDICATIONS: 1. Furosemide 40 mg on a p.r.n. basis. 2. Glipizide 5 mg once a day. 3. Atorvastatin 80 mg once a day. 4. Metformin 1000 mg once a day. 5. Pioglitazone 45 mg once a day. 6. Benazepril 5 mg once a day. 7. Omeprazole 20 mg once a day. 8. Wellbutrin 150 mg twice a day. SOCIAL HISTORY: Positive for smoking for about 15 pack/years; quit in February 2020. Alcohol consumption none. FAMILY HISTORY: Hypertension, heart problems, hyperlipidemia, stroke, restless legs. REVIEW OF SYSTEMS: Multiple awakenings from sleep, significant excessive daytime sleepiness. PHYSICAL EXAMINATION: GENERAL: A pleasant 34-year-old lady without distress. VITAL SIGNS: BP 140/77, HR 90, RR 15, height 5 feet 8 inches, weight 414 pounds, body mass index 63, temperature 98.4, oxygen saturation at room air 98%. HEENT: PERRLA, EOMI. Evaluation of oropharynx showed tongue protrudes midline. Low position of soft palate. Mallampati III. Wide pillars. NECK: Supple. No JVD. Thyroid is not palpable. Wide neck; 17-1/2 inches in circumference. LUNGS: Clear to percussion and to auscultation. Good air exchange. No wheezing or rhonchi. HEART: S1, S2 regular. No murmurs, gallops or rubs. ABDOMEN: Obese. EXTREMITIES: No clubbing or cyanosis. SENIOR PROCUREMENT SPECIALIST: Awake, alert, and oriented X3. Cranial nerves 2 to 7 intact. There is no fasciculation or atrophy. noted. No focal deficits observed. IMPRESSION: 1. Snoring, multiple awakenings from sleep, small oropharyngeal air space, wide neck, significant excessive daytime sleepiness, [place] Sleepiness Scale of 17; obstructive sleep apnea-hypopnea syndrome. 2. Very high [place] Sleepiness Scale; may indicate possibility of hypersomnia. That could indicate significantly insufficient amount of sleep, also. 3. Morbid obesity. BMI 63. 4. Diabetes mellitus. 5. History of anxiety, depression, bipolar disorder. 6. History of pneumonia x2. 7. History of arthritis. 8. Headaches. 9. Status post cholecystectomy. 10.Status post . 11.Sleep delay syndrome. PLAN: 1. Polysomnography for evaluation of patient's breathing during sleep. 2. CPAP/BiPAP titration if sleep study confirms obstructive sleep apnea-hypopnea syndrome. 3. Preferable position during sleep on the side. 4. No driving if patient feels any sleepiness. 5. I will see patient for follow up visit to explain results of testing and following plan. 6. More bright light, preferably sunlight in the morning. Thank you very much for referring this patient for consultation. Sincerely, Donte Pruitt MD, PhD, FAASM Diplomat of [place] [employer] [place] [employer] Resident [employer]er [facility] MMODL / IJN: [id number] /
== END | disposition home or self-care (01) ==
LOC: SLEEP 16:49
PROVIDERS: ATTEND Internal Medicine
DX: G47.33 Obstructive sleep apnea (adult) (pediatric) (principal); G47.8 Other sleep disorders; E11.9 Type 2 diabetes mellitus without complications; E66.01 Morbid (severe) obesity due to excess calories; R51.9 Headache, unspecified; Z79.891 Long term (current) use of opiate analgesic; Z79.84 Long term (current) use of oral hypoglycemic drugs; Z68.44 Body mass index [BMI] 60.0-69.9, adult; Z86.59 Personal history of other mental and behavioral disorders; Z79.899 Other long term (current) drug therapy; Z87.39 Personal history of other diseases of the musculoskeletal system and connective tissue; Z90.49 Acquired absence of other specified parts of digestive tract; Z87.01 Personal history of pneumonia (recurrent)
CPT/HCPCS: 99211

== ENCOUNTER → 2024-09-10 | Outpatient (CLI) | payer OTHER | END | disposition home or self-care (01) | LOC: LABWHC1 08:16 | PROVIDERS: ATTEND Internal Medicine Gastroenterology | DX: K58.0 Irritable bowel syndrome with diarrhea (principal) | CPT/HCPCS: 36415; 83516 ==

== ENCOUNTER → 2024-10-29 | Outpatient (CLI) | payer OTHER ==
--- NOTE | 2024-10-29 13:34 | US ---
EXAMINATION TYPE: US transvaginal DATE OF EXAM: 10/29/2024 COMPARISON: 01/28/2019 CLINICAL INDICATION: Female, 38 years old with history of N91.2 AMENORRHEA, UNSPECIFIED; No menstrual cycle for 8 months, spotting beginning of september; Hx csection; Patient denies any other signs, symptoms , or relevant history TECHNIQUE: Transvaginal (TV). Transvaginal sonographic images were ordered Doppler imaging: Not performed. FINDINGS: Date of LMP: 8 months ago EXAM MEASUREMENTS: Uterus: 8.3 x 3.4 x 5.8 cm Endometrial Stripe: 2.3 cm Right Ovary: 2.8 x 2.7 x 2.7 cm Left Ovary: 4.9 x 4.4 x 4.0 cm 1. Uterus: Anteverted wnl 2. Endometrium: Thickened 3. Right Ovary: Limited visualization 4. Left Ovary: Dominant follicle 5. Bilateral Adnexa: wnl 6. Posterior cul-de-sac: wnl IMPRESSION: 1. Thickened endometrium. Consider additional workup. 2. Follicle left ovary O-RADS 2021 [email or web address] [facility], , 10/29/2024 1:31 PM
== END | disposition home or self-care (01) ==
LOC: RADUSWWP 09:56
PROVIDERS: ATTEND Family Medicine
DX: N91.2 Amenorrhea, unspecified (principal); R93.89 Abnormal findings on diagnostic imaging of other specified body structures
CPT/HCPCS: 76830

== ENCOUNTER → 2024-11-22 | Outpatient (CLI) | payer OTHER ==
--- NOTE | 2024-11-22 14:40 | US ---
EXAMINATION TYPE: US kidneys/renal and bladder DATE OF EXAM: 11/22/2024 COMPARISON: CT abdomen pelvis 07/16/2016 CLINICAL INDICATION: Female, 38 years old with history of R33.9 INCOMPLETE EMPTYING, R35.0 FREQUENT U RINATIO; TECHNIQUE: Grayscale imaging of the bilateral kidneys and urinary bladder: FINDINGS: EXAM MEASUREMENTS: Right Kidney: 11.4 x 5.6 x 5.7 cm Left Kidney: 11.7 x 5.1 x 5.8 cm Difficult and limited study due to patient body habitus Right Kidney: no hydronephrosis or masses seen Left Kidney: no hydronephrosis or masses seen Bladder: wnl Bilateral Jets seen: no Normal Post Void Residual: no - 138.45ml No hydronephrosis, solid renal mass, shadowing calculus. Cortical medullary differentiation is mainta ined bilaterally. The urinary bladder is anechoic. Abnormal postvoid residual of 138.45 mL. IMPRESSION: 1. No hydronephrosis or nephrolithiasis. 2. Abnormal postvoid urinary bladder residual of 138.45 mL. [facility], , 11/22/2024 2:38 PM
== END | disposition home or self-care (01) ==
LOC: RADUSWWP 13:55
PROVIDERS: ATTEND Family Medicine
DX: R33.9 Retention of urine, unspecified (principal); R35.0 Frequency of micturition; N39.8 Other specified disorders of urinary system
CPT/HCPCS: 76770